=== PATIENT | female | born 1975 | race Caucasian/White ===

== ENCOUNTER 2016-04-10 08:53 | Day surgery (SDC) | payer OTHER ==
[2016-04-10 09:11] LABS: HEMATOCRIT 40.1 % (36.0-47.0); HEMOGLOBIN 13.7 g/dL (12.0-15.5); MEAN CORPUSCULAR HEMOGLOBIN 29.9 pg (27.0-33.4); MEAN CORPUSCULAR HGB CONC 34.2 g/dL (32.0-36.0); MEAN CORPUSCULAR VOLUME 87 fl (80-97); RED CELL DISTRIBUTION WIDTH 12.7 % (11.5-14.0); WHITE BLOOD COUNT 7.3 10^3/uL (4.0-10.5)
[2016-04-10] MEDS ORDERED: ONDANSETRON HCL INJ/PF 4 MG/2 ML SDV ONE (10:45)
[2016-04-10] MEDS ORDERED: NALOXONE HCL INJ/PF 0.4 MG/1 ML SDV ONE (10:45)
[2016-04-10] MEDS ORDERED: GLYCOPYRROLATE INJ 0.4 MG/2 ML VIAL ONE (10:46)
[2016-04-10] MEDS ORDERED: PROMETHAZINE HCL INJ 25 MG/1 ML VIAL ONE (10:46)
[2016-04-10] MEDS ORDERED: GLUCAGON,HUMAN RECOMB 1 MG INJ ONE (10:47)
[2016-04-10] MEDS ORDERED: FLUMAZENIL INJ 0.5 MG/5 ML VIAL IV ONE (10:47)
[2016-04-10] MEDS ORDERED: EPINEPHRINE INJ 1 MG/10 ML DISP.SYRIN ONE (10:47)
[2016-04-10] MEDS: MIDAZOLAM 2 MG/2 ML INJ ONE ×2 (10:57→11:01)
[2016-04-10] MEDS: FENTANYL CITRATE INJ/PF 100 MCG/2 ML AMPUL ONE ×2 (10:59→11:03)
--- NOTE | 2016-04-10 11:46 | Operative Report ---
Operative Report DATE OF SURGERY: 04/10/16 PREOPERATIVE DIAGNOSIS: Sigmoid colon mass POSTOPERATIVE DIAGNOSIS: Sigmoid colon mass, distal sigmoid colon polyp OPERATION: Colonoscopy with biopsy of sigmoid colon mass and snare polypectomy of sigmoid colon polyp. Em ink marking of the sigmoid colon mass. SURGEON: HELENE MOSELEY ANESTHESIA: Moderate Sedation TISSUE REMOVED OR ALTERED: Biopsy of sigmoid colon mass. Snare polypectomy of distal sigmoid colon polyp. COMPLICATIONS: None ESTIMATED BLOOD LOSS: minimal INTRAOPERATIVE FINDINGS: At the distal sigmoid colon a half centimeter sessile polyp. At the mid sigmoid colon 3 cm mass with friable mucosa. PROCEDURE: Informed consent was obtained. Patient was brought to the endoscopy suite and placed on the endoscopy suite table with her left side down. IV sedation with Versed and fentanyl was administered. Digital rectal exam revealed no palpable perianal masses. Endoscope was passed via the patient's anus it was fed to the cecum. The bowel prep was good visualization was good. The cecum right colon transverse colon and descending colon were all normal. At what appeared to be the mid sigmoid colon there was a 3 cm mass it the appeared to be pedunculated but the base of the mass was about 2 cm therefore too large to be removed endoscopically. The mass appeared friable. Biopsies were taken. I did not see evidence of Em ink marking therefore Em ink marking was done at the 3 sections of the colon wall adjacent to the mass. Couple of folds distal to this mass there was a half centimeter sessile polyp each was snare polypectomy and the specimen was retrieved. Remainder of the sigmoid colon and the rectum appeared normal. Patient tolerated procedure well with no apparent complications. Distal sigmoid colon polyp status post successful snare polypectomy. Patient with sigmoid colon mass the probably at the mid sigmoid colon status post biopsy today. I will follow-up with the patient to discuss biopsy results and the surgical plan. She would benefit from a laparoscopic the partial colon resection.
--- NOTE | 2016-04-10 11:49 | PDOC DISCHARGE SUMMARY ---
Discharge Summary (SDC) - Discharge Final Diagnosis: Sigmoid colon mass. Sigmoid colon polyp. Date of Surgery: 04/10/16 Discharge Date: 04/10/16 Condition: Good Treatment or Instructions: Colonoscopy with snare polypectomy of sigmoid colon polyp, biopsy and Em ink marking of sigmoid colon mass. May discharge patient home when met discharge criteria. Follow-up with me next week. Discharge Diet: As Tolerated Discharge Activity: Activity As Tolerated Report the Following to Your Physician Immediately: Increase in Pain - Normal to have some abdominal discomfort but cough or severe abdominal pain, Fever over 101 Degrees, Unusual Bleeding - Normal to see small amount of bleeding in the next few days.
[2016-04-10 12:32] VITALS: BP 125/77
== END 2016-04-10 12:35 | disposition home or self-care (01) ==
LOC: END 08:53
PROVIDERS: ATTEND Surgery
PROC: 0DBN8ZX Excision of Sigmoid Colon, Via Natural or Artificial Opening Endoscopic, Diagnostic (ICD-10-PCS; principal; 2016-04-10 10:15)
DX: C18.7 Malignant neoplasm of sigmoid colon (principal); D12.5 Benign neoplasm of sigmoid colon; R53.83 Other fatigue; Z97.5 Presence of (intrauterine) contraceptive device
CPT/HCPCS: 45385; 45381; 36415; 85027; 81025; 88342 ×2; 88305 ×2; J2250; J3010; 45380; J0171; J1610; J2310; J2405; J2550; J3490

== ENCOUNTER → 2016-04-16 | Outpatient (CLI) | payer OTHER ==
[2016-04-16 12:08] LABS: ABSOLUTE EOSINOPHILS # (AUTO) 0.1 10^3/uL (0.0-0.6); ABSOLUTE LYMPHOCYTES (AUTO) 2.1 10^3/uL (0.5-4.7); ABSOLUTE MONOCYTES (AUTO) 0.6 10^3/uL (0.1-1.4); ABSOLUTE NEUT (AUTO) 6.1 10^3/uL (1.7-8.2); BASOPHILS % (AUTO) 0.2 % (0-2); EOSINOPHILS % (AUTO) 0.8 % (0-6); HEMATOCRIT 41.1 % (36.0-47.0); HGB HCT DIFFERENCE 0.9; LYMPHOCYTES % (AUTO) 23.2 % (13-45); MEAN CORPUSCULAR HEMOGLOBIN 29.3 pg (27.0-33.4); MEAN CORPUSCULAR VOLUME 86 fl (80-97); MONOCYTES % (AUTO) 7.1 % (3-13); RED BLOOD COUNT 4.77 10^6/uL (3.72-5.28); RED CELL DISTRIBUTION WIDTH 12.8 % (11.5-14.0); SEGMENTED NEUTROPHILS % (AUTO) 68.7 % (42-78); WHITE BLOOD COUNT 8.9 10^3/uL (4.0-10.5)
[2016-04-16 12:48] LABS: ALANINE AMINOTRANSFERASE 30 U/L (9-52); ALBUMIN 4.1 g/dL (3.5-5.0); ALKALINE PHOSPHATASE 55 U/L (38-126); ANION GAP 12 (5-19); ASPARTATE AMINO TRANSFERASE 21 U/L (14-36); BILIRUBIN,TOTAL 0.5 mg/dL (0.2-1.3); BLOOD UREA NITROGEN 10 mg/dL (7-20); CALCIUM 9.7 mg/dL (8.4-10.2); CARBON DIOXIDE 24 mmol/L (22-30); CHLORIDE 106 mmol/L (98-107); CREATININE RESULT 0.84 mg/dL (0.52-1.25); GLUCOSE 79 mg/dL (75-110); POTASSIUM 4.6 mmol/L (3.6-5.0); SODIUM 142.1 mmol/L (137-145); TOTAL PROTEIN 7.9 g/dL (6.3-8.2)
[2016-04-16 13:10] LABS: CARCINOEMBRYONIC ANTIGEN 0.7 ng/mL (<3.0)
== END ==
LOC: OD 11:08
PROVIDERS: ATTEND Surgery
DX: C18.9 Malignant neoplasm of colon, unspecified (principal)
CPT/HCPCS: 36415; 80053; 82378; 84703; 85025

== ENCOUNTER → 2016-04-19 | Outpatient (CLI) | payer OTHER | LOC: RAD 09:48 | PROVIDERS: ATTEND Surgery | DX: C18.9 Malignant neoplasm of colon, unspecified (principal) | CPT/HCPCS: 71260; 74177 ==

== ENCOUNTER 2016-05-10 05:56 | Inpatient (IN) | payer OTHER ==
[~2016-05-10 05:56] MED LIST: ERTAPENEM SODIUM 1 GM in NORMAL SALINE 50 ML IV PRN; NORMAL SALINE 1000 ML 1,000 ML IV PRN; RINGERS SOLUTION,LACTATED 1,000 ML IV PRN
[2016-05-10] MEDS ORDERED: BUPIVACAINE HCL 0.25 % INJ/PF (2.5 MG/1 ML) 30 ML VIAL ONE (06:34)
[2016-05-10] MEDS ORDERED: FENTANYL CITRATE INJ/PF 250 MCG/5 ML AMPULE ONE (07:05)
[2016-05-10] MEDS ORDERED: MIDAZOLAM 2 MG/2 ML INJ ONE (07:06)
[2016-05-10] MEDS ORDERED: PROPOFOL INJ 200 MG/20 ML VIAL IV ONE ×2 (07:06→07:19)
[2016-05-10] MEDS ORDERED: EPHEDRINE SULFATE INJ 50 MG/1 ML AMPULE ONE (07:06)
[2016-05-10] MEDS ORDERED: ACETAMINOPHEN 100 ML IV ONE (07:06)
[2016-05-10] MEDS ORDERED: HYDROMORPHONE HCL INJ/PF 2 MG/ML AMPULE ONE (07:06)
[2016-05-10] MEDS ORDERED: DEXMEDETOMIDINE INJ 80 MCG/20 ML VIAL IV ONE (07:06)
[2016-05-10] MEDS ORDERED: PROMETHAZINE HCL INJ 25 MG/1 ML VIAL IV PRN ×2 (10:31)
[2016-05-10] MEDS ORDERED: DIPHENHYDRAMINE HCL 50 MG/ML VIAL IV PRN (10:31)
[2016-05-10] MEDS ORDERED: MEPERIDINE HCL/PF INJ 25 MG/1 ML DISP.SYRIN IV PRN (10:31)
[2016-05-10] MEDS ORDERED: MORPHINE SULFATE 10 MG/ML INJ IV PRN (10:31)
[2016-05-10] MEDS ORDERED: FENTANYL CITRATE INJ/PF 100 MCG/2 ML AMPUL IV PRN ×3 (10:31)
[2016-05-10] MEDS ORDERED: ONDANSETRON HCL INJ/PF 4 MG/2 ML SDV IV PRN ×2 (10:31→12:17)
--- NOTE | 2016-05-10 12:35 | Operative Report ---
Operative Report DATE OF SURGERY: 05/10/16 PREOPERATIVE DIAGNOSIS: Sigmoid colon cancer POSTOPERATIVE DIAGNOSIS: Sigmoid colon cancer, descending colon polyp. OPERATION: Laparoscopic sigmoid colon resection with mobilization of the splenic flexure with colorectal anastomosis. Polypectomy of descending colon polyp. SURGEON: HELENE MOSELEY ANESTHESIA: GA TISSUE REMOVED OR ALTERED: Sigmoid colon. Descending colon polyp. COMPLICATIONS: None ESTIMATED BLOOD LOSS: 50 mL INTRAOPERATIVE FINDINGS: At the mid sigmoid colon pedunculated a large mass consistent with preoperative endoscopic finding of colon cancer. Half centimeter sessile polyp at the distal descending colon. PROCEDURE: Informed consent was obtained. Patient was brought to the operating room and placed on the operating room table in the supine position. After satisfactory induction of general anesthesia, patient was placed in a low lithotomy position and the patient's abdomen and perineum were prepped and draped in usual sterile fashion. A infraumbilical midline incision was made. Dissection was carried out through the fascia the peritoneal cavity entered without difficulty. Laparoscopic hand port was then inserted pneumoperitoneum produced with good patient toleration. A 12 mm trocar was placed in the low right abdomen. Total of three 5 mm trochars were used one at the right mid lateral abdomen and another one at the lower mid abdomen and another one at the left abdomen. Laparoscopic view demonstrated a smooth peritoneal surface with smooth appearing liver with no masses. The small bowel appear grossly normal. The right colon transverse colon descending colon appear grossly normal. Sigmoid colon had at the mid sigmoid colon level Em ink marking. Both of the ovaries appeared normal. Patient was placed in a Trendelenburg position with her left side up. A medial to lateral dissection was begun at the sacral promontory. The left ureter was identified and protected during the dissection. The inferior mesenteric artery was clearly defined a was dissected to near its origin. It was taken using a vascular load of the DELON stapling device. The left colon was completely mobilized. Distal dissection was performed to the level of the upper rectum. A plane was created between the mesial rectum and the upper rectum and the upper rectum was divided using a DELON stapling device. The mesentery of the upper rectum was taken using a vascular load of the DELON stapling device. The upper rectum and the sigmoid colon was delivered out of the patient's abdomen via the hand port site. The sigmoid colon was divided at its junction to the descending colon using a DELON stapling device. The mesentery of the entire sigmoid colon was taken by clamping dividing and tying. The descending colon and appear well vascularized with the triphasic Doppler signals at its mesentery. The colon and did not quite reach the rectal stump therefore a full splenic flexure mobilization was performed. Dissection was begun at the descending colon and progress toward the spleen. The omentum was taken off of the distal transverse colon and the dissection was carried the left toward the spleen as well. The splenic flexure was completely mobilized. The splenic flexure had the fatty omental adhesions that made this portion of the procedure difficult. Great care was taken to avoid injury to the spleen and the splenic flexure of the colon. After complete mobilization of the splenic flexure the distal descending colon and reach down to the rectal stump easily. A pursestring device was applied to the end of the descending colon. Looking into the lumen of the descending colon there was a half centimeter sessile polyp that was noted about 3 cm up. This polyp was removed using electrocautery and submitted to pathology. Head of a 33 EEA stapling device was then attached to the descending colon and using a pursestring device. The EEA stapling device was was introduced via the patient's rectum into the rectal stump and a end to end anastomosis was created between the descending colon end and the rectal stump. The anastomosis came together without any tension. Both of the doughnuts were intact. Anastomosis was tested with the proctoscope insufflating air. The anastomosis was airtight. Hemostasis appeared excellent. Sponge needle instrument counts were all correct. All trochars were removed under the direct vision of the laparoscope to ensure hemostasis. The 12 mm of trocar site fascial defect was closed with interrupted Vicryl suture. The hand port fascial defect was closed with running PDS suture. Skin was closed with marin. Marcaine was injected at the operative site. Patient tolerated procedure well with no apparent complications and was taken to the recovery area in stable condition.
[2016-05-10] MEDS ORDERED: FENTANYL CITRATE INJ/PF 100 MCG/2 ML AMPUL ONE (12:47)
[2016-05-10] MEDS ORDERED: METOCLOPRAMIDE HCL INJ/PF 10 MG/2 ML SDV ONE (14:15)
[2016-05-10] MEDS ORDERED: LIDOCAINE 2% INJ-PF (20 MG/ML) 10 ML AMPUL ONE (14:15)
[2016-05-10] MEDS ORDERED: SUCCINYLCHOLINE CHLORIDE INJ 200 MG/10 ML VIAL ONE (14:15)
[2016-05-10] MEDS ORDERED: NEOSTIGMINE METHYLSULFATE 10 MG/10 ML VIAL ONE (14:15)
[2016-05-10] MEDS ORDERED: GLYCOPYRROLATE INJ 0.4 MG/2 ML VIAL ONE (14:15)
[2016-05-10] MEDS ORDERED: ONDANSETRON HCL INJ/PF 4 MG/2 ML SDV ONE (14:15)
[2016-05-10] MEDS ORDERED: DEXAMETHASONE SOD PHOSPHATE INJ 4 MG/1 ML VIAL ONE (14:15)
[2016-05-10] MEDS ORDERED: KETOROLAC TROMETHAMINE 60 MG/2 ML SDV ONE (14:15)
[2016-05-10] MEDS ORDERED: ROCURONIUM BROMIDE INJ 50 MG/5 ML VIAL IV ONE (14:15)
[2016-05-10] MEDS: KETOROLAC TROMETHAMINE INJ/PF 30 MG/1 ML SDV IV PRN ×2 (14:19→21:40)
[2016-05-10] MEDS: MORPHINE SULFATE 10 MG/ML INJ IV PRN ×3 (15:58→22:04)
--- NOTE | 2016-05-10 19:17 | PDOC PROGRESS REPORT ---
Subjective Progress Note for:: 05/10/16 Subjective:: lower abdominal pain. Physical Exam Vital Signs: Temp Pulse Resp BP Pulse Ox 97.5 F 56 L 16 104/47 L 97 05/10/16 14:22 05/10/16 14:22 05/10/16 14:22 05/10/16 14:22 05/10/16 14:22 Intake & Output 05/09/16 05/10/16 05/11/16 06:59 06:59 06:59 Intake Total 3750 Output Total 720 Balance 3030 Weight 98.43 kg 98.43 kg General appearance: PRESENT: no acute distress, cooperative Respiratory exam: PRESENT: clear to auscultation frank Cardiovascular exam: PRESENT: RRR GI/Abdominal exam: PRESENT: other - soft, nd, appropriate mild lower abdominal tenderness. Extremities exam: PRESENT: other - No swelling. Assessment & Plan - Diagnosis (1) Colon cancer Qualifiers: Colon location: sigmoid Qualified Code(s): C18.7 - Malignant neoplasm of sigmoid colon Is this a current diagnosis for this admission?: YesPlan: Status post laparoscopic sigmoid colon resection. Patient looks good. We'll adjust pain medications as needed. Will pull her Dennison catheter tomorrow and perhaps try liquids tomorrow.
[2016-05-10] MEDS: NORMAL SALINE 1000 ML 1,000 ML IV PRN (21:40)
[2016-05-10] MEDS: FAMOTIDINE INJ/PF 20 MG/2 ML SDV IV SCH (21:40)
[2016-05-11] MEDS: MORPHINE SULFATE 10 MG/ML INJ IV PRN ×7 (01:31→22:34)
[2016-05-11] MEDS: NORMAL SALINE 1000 ML 1,000 ML IV PRN (05:15)
[2016-05-11] MEDS: KETOROLAC TROMETHAMINE INJ/PF 30 MG/1 ML SDV IV PRN ×2 (07:11→15:27)
--- NOTE | 2016-05-11 07:54 | PDOC PROGRESS REPORT ---
Subjective Progress Note for:: 05/11/16 Subjective:: Pain improved. Feels okay. Not passing gas. No nausea. Physical Exam Vital Signs: Temp Pulse Resp BP Pulse Ox 98.4 F 73 17 119/67 98 05/10/16 23:39 05/10/16 23:39 05/10/16 23:39 05/10/16 23:39 05/10/16 23:39 Intake & Output 05/10/16 05/11/16 05/12/16 06:59 06:59 06:59 Intake Total 5250 Output Total 1020 Balance 4230 Weight 98.43 kg 97.2 kg General appearance: PRESENT: no acute distress, cooperative Respiratory exam: PRESENT: clear to auscultation frank Cardiovascular exam: PRESENT: RRR GI/Abdominal exam: PRESENT: soft - Soft, nondistended, appropriate tenderness near the incisions. Decreased bowel sounds. Extremities exam: PRESENT: other - No swelling. No tenderness. Assessment & Plan - Diagnosis (1) Colon cancer Qualifiers: Colon location: sigmoid Qualified Code(s): C18.7 - Malignant neoplasm of sigmoid colon Is this a current diagnosis for this admission?: YesPlan: Status post the laparoscopic low anterior resection. Patient looks well. Will hold off diet for right now. will DC Dennison catheter. Encourage ambulation.
[2016-05-11 08:21] LABS: HEMATOCRIT 33.8 % (36.0-47.0); HEMOGLOBIN 11.4 g/dL (12.0-15.5); HGB HCT DIFFERENCE 0.4; MEAN CORPUSCULAR HEMOGLOBIN 29.7 pg (27.0-33.4); MEAN CORPUSCULAR HGB CONC 33.8 g/dL (32.0-36.0); MEAN CORPUSCULAR VOLUME 88 fl (80-97); RED BLOOD COUNT 3.84 10^6/uL (3.72-5.28); RED CELL DISTRIBUTION WIDTH 12.9 % (11.5-14.0); WHITE BLOOD COUNT 11.5 10^3/uL (4.0-10.5)
[2016-05-11 09:02] LABS: ANION GAP 8 (5-19); BLOOD UREA NITROGEN 8 mg/dL (7-20); CALCIUM 8.6 mg/dL (8.4-10.2); CARBON DIOXIDE 20 mmol/L (22-30); CHLORIDE 109 mmol/L (98-107); CREATININE RESULT 0.69 mg/dL (0.52-1.25); GLUCOSE 76 mg/dL (75-110); POTASSIUM 4.2 mmol/L (3.6-5.0)
[2016-05-11] MEDS: FAMOTIDINE INJ/PF 20 MG/2 ML SDV IV SCH ×2 (09:12→22:34)
[2016-05-11] MEDS ORDERED: NORMAL SALINE 1000 ML 1,000 ML IV PRN (17:14)
[2016-05-12] MEDS: KETOROLAC TROMETHAMINE INJ/PF 30 MG/1 ML SDV IV PRN ×3 (02:17→22:56)
[2016-05-12] MEDS: MORPHINE SULFATE 10 MG/ML INJ IV PRN ×6 (02:17→22:57)
--- NOTE | 2016-05-12 08:11 | PDOC PROGRESS REPORT ---
Subjective Progress Note for:: 05/12/16 - \ Subjective:: Feels well. Tolerating liquids. Not passing gas. No nausea. Physical Exam Vital Signs: Temp Pulse Resp BP Pulse Ox 98.6 F 84 20 127/62 H 96 05/11/16 23:38 05/11/16 23:38 05/11/16 23:38 05/11/16 23:38 05/11/16 23:38 Intake & Output 05/11/16 05/12/16 05/13/16 06:59 06:59 06:59 Intake Total 5250 2945 Output Total 1020 1600 Balance 4230 1345 Weight 97.2 kg 104.8 kg General appearance: PRESENT: no acute distress, cooperative Respiratory exam: PRESENT: clear to auscultation frank Cardiovascular exam: PRESENT: RRR GI/Abdominal exam: PRESENT: other - Soft, nondistended, minimal tenderness. Active bowel sounds. Extremities exam: PRESENT: other - No swelling and no tenderness. Results Laboratory Results: 05/11/16 06:50 05/11/16 06:50 05/11/16 05/11/16 06:50 06:50 WBC 11.5 H RBC 3.84 Hgb 11.4 L Hct 33.8 L MCV 88 MCH 29.7 MCHC 33.8 RDW 12.9 Plt Count 190 Sodium 137.0 Potassium 4.2 Chloride 109 H Carbon Dioxide 20 L Anion Gap 8 BUN 8 Creatinine 0.69 Est GFR ( Amer) > 60 Est GFR (Non-Af Amer) > 60 Glucose 76 Calcium 8.6 Assessment & Plan - Diagnosis (1) Colon cancer Qualifiers: Colon location: sigmoid Qualified Code(s): C18.7 - Malignant neoplasm of sigmoid colon Is this a current diagnosis for this admission?: YesPlan: Status post the laparoscopic low anterior resection. Patient looks well. Tolerating clears well. Will Hep-Lock IV. Will advance diet when she has better bowel function. Possible discharge to home tomorrow.
[2016-05-12] MEDS: FAMOTIDINE INJ/PF 20 MG/2 ML SDV IV SCH ×2 (10:02→22:56)
[2016-05-13] MEDS: MORPHINE SULFATE 10 MG/ML INJ IV PRN ×2 (05:57→09:10)
[2016-05-13] MEDS: KETOROLAC TROMETHAMINE INJ/PF 30 MG/1 ML SDV IV PRN ×2 (09:10→18:09)
[2016-05-13] MEDS: FAMOTIDINE INJ/PF 20 MG/2 ML SDV IV SCH ×2 (09:10→21:45)
[2016-05-13] MEDS ORDERED: OXYCODONE-ACETAMINOPHEN 5-325 MG TABLET PO PRN ×3 (12:00→14:51)
--- NOTE | 2016-05-13 12:33 | PROGRESS NOTE E ---
Progress Note NAME: MARYBETH WEEKS : 1975 AGE: 40Y DATE: 05/13/2016 ROOM: 409 SUBJECTIVE: The patient is postoperative day 3 status post hand-assisted laparoscopic sigmoid colon resection. She is doing excellently. She is up and ambulating. OBJECTIVE: VITAL SIGNS: Her vital signs are stable. GENERAL: Her physical examination reveals an appropriate, alert woman in no acute distress. She is ambulatory. LUNGS: Her chest is clear to auscultation and percussion. CARDIAC: Exam is without murmur, gallop, or rub. ABDOMEN: Soft. Nontender. There is no organomegaly, mass, rebound, guarding, or rigidity. There is no evidence of peritonitis. Wounds are healing nicely. She has ample bowel sounds. EXTREMITIES: Peripheral examination is unremarkable. RECOMMENDATION: She has not, as yet, had a bowel movement and is not passing flatus. Recommendations at this time is to continue clear liquids, which she is tolerating well and await normal return of her bowel function. She is in agreement with this recommendation. DICTATING PHYSICIAN: SRAAH MENSAH M.D. [id number] PHY#: [id number] ID: [id number] JOB#: [id number] ACCT: [id number] cc: >
[2016-05-13] MEDS ORDERED: MAG HYDROX/AL HYDROX/SIMETH SUSP 30 ML UDCUP PO PRN (14:52)
[2016-05-13] MEDS: OXYCODONE-ACETAMINOPHEN 5-325 MG TABLET PO PRN (21:53)
[2016-05-14] MEDS: KETOROLAC TROMETHAMINE INJ/PF 30 MG/1 ML SDV IV PRN ×2 (07:11→13:53)
--- NOTE | 2016-05-14 09:02 | PDOC PROGRESS REPORT ---
Subjective Progress Note for:: 05/14/16 Subjective:: feels well. Physical Exam Vital Signs: Temp Pulse Resp BP Pulse Ox 98.2 F 62 18 125/84 100 05/14/16 07:32 05/14/16 07:32 05/14/16 07:32 05/14/16 07:32 05/14/16 07:32 Intake & Output 05/13/16 05/14/16 05/15/16 06:59 06:59 06:59 Intake Total 2280 1670 Output Total 13350 2850 Balance -30442 -1180 Weight 103.4 kg 102 kg General appearance: PRESENT: no acute distress, cooperative Respiratory exam: PRESENT: clear to auscultation frank Cardiovascular exam: PRESENT: RRR GI/Abdominal exam: PRESENT: other - soft, nd, ntp, c/d/i Extremities exam: PRESENT: other - no swelling, no edema Results Laboratory Results: 05/11/16 06:50 05/11/16 06:50 Assessment & Plan - Diagnosis (1) Colon cancer Qualifiers: Colon location: sigmoid Qualified Code(s): C18.7 - Malignant neoplasm of sigmoid colon Is this a current diagnosis for this admission?: YesPlan: doing well. passing gas now. advance diet, possible d/c later today.
[2016-05-14] MEDS: FAMOTIDINE INJ/PF 20 MG/2 ML SDV IV SCH (09:33)
[2016-05-14] MEDS: OXYCODONE-ACETAMINOPHEN 5-325 MG TABLET PO PRN (09:34)
[2016-05-14 18:01] VITALS: BP 130/75
--- NOTE | 2016-05-14 18:18 | DISCHARGE SUMMARY E ---
Discharge Summary NAME: MARYBETH WEEKS : 1975 AGE: 40Y ADMITTED: 05/10/2016 DISCHARGED: 05/14/2016 DISCHARGE DIAGNOSIS: Invasive sigmoid colon cancer. PROCEDURE PERFORMED DURING HOSPITALIZATION: Laparoscopic low anterior resection with mobilization of the splenic flexure performed by Dr. Jeremiah Moseley on 05/10/2016. HOSPITAL COURSE: The patient underwent the abovementioned surgery. She had gradual resumption of bowel function. She was tolerating a solid diet without difficulty at the time of discharge. Her exam looked good, and her vital signs looked good. The patient has now been discharged to home in good condition. She will follow up with me later this week for suture removal. Of note, her pathology report demonstrated high-grade invasive adenocarcinoma with tumor extension into the submucosa but not into the muscularis. 2 out of 17 lymph nodes were positive for cancer. Pathologic staging was a T1N1 cancer. The patient was also noted with a tubular adenoma which was resected. The patient encouraged to stay active at home but avoid strenuous activity. She may shower. DISCHARGE MEDICATIONS: Percocet 1 p.o. q.4 hours p.r.n. pain. DICTATING PHYSICIAN: JEREMIAH MOSELEY M.D. [id number] PHY#: [id number] ID: [id number] JOB#: [id number] ACCT: [id number] cc:JEREMIAH MOSELEY M.D. >
== END 2016-05-14 18:15 | disposition home or self-care (01) | DRG 330 ==
LOC: UNDOADMIN 05:56 → INOR 05:56 → 4N 13:47
PROVIDERS: ADMIT Surgery; ATTEND Surgery
PROC: 0DTN4ZZ Resection of Sigmoid Colon, Percutaneous Endoscopic Approach (ICD-10-PCS; principal; 2016-05-10 08:00)
DX: C18.7 Malignant neoplasm of sigmoid colon (principal); C77.2 Secondary and unspecified malignant neoplasm of intra-abdominal lymph nodes; D12.4 Benign neoplasm of descending colon
CPT/HCPCS: 36415; 80048; 81025; 840; 85027; 88305; 88307; 94799; 88329; J0131; J0330; J1100; J1170; J1335; J1885; J2250; J2270; J2405; J2704; J2765; J3010; J3490; J7030; S0028

== ENCOUNTER 2016-06-11 06:26 | Day surgery (SDC) | payer OTHER ==
[~2016-06-11 06:26] MED LIST changes: +CEFAZOLIN 1 GM/D5W RTU 1 GM/50 ML RTUPB IV PRN; +DEXTROSE 5%-LACTATED RINGERS 1,000 ML IV PRN; -ERTAPENEM SODIUM 1 GM in NORMAL SALINE 50 ML IV PRN; -NORMAL SALINE 1000 ML 1,000 ML IV PRN; -RINGERS SOLUTION,LACTATED 1,000 ML IV PRN
[2016-06-11 07:34] LABS: HEMATOCRIT 37.3 % (36.0-47.0); HEMOGLOBIN 12.7 g/dL (12.0-15.5); HGB HCT DIFFERENCE 0.8; MEAN CORPUSCULAR HEMOGLOBIN 29.4 pg (27.0-33.4); MEAN CORPUSCULAR HGB CONC 34.2 g/dL (32.0-36.0); MEAN CORPUSCULAR VOLUME 86 fl (80-97); RED BLOOD COUNT 4.34 10^6/uL (3.72-5.28); WHITE BLOOD COUNT 7.7 10^3/uL (4.0-10.5)
[2016-06-11] MEDS ORDERED: BACITRACIN INJ 50,000 UNIT VIAL IR PRN (07:49)
[2016-06-11] MEDS ORDERED: LIDOCAINE 0.5% INJ-PF (5 MG/ML) 50 ML SDV ONE (08:03)
[2016-06-11] MEDS ORDERED: FENTANYL CITRATE INJ/PF 100 MCG/2 ML AMPUL ONE (08:16)
[2016-06-11] MEDS ORDERED: MIDAZOLAM 2 MG/2 ML INJ ONE ×2 (08:16→09:22)
[2016-06-11] MEDS ORDERED: CEFAZOLIN INJ 1 GM VIAL ONE (08:16)
[2016-06-11 11:01] VITALS: BP 122/77
--- NOTE | 2016-06-11 12:00 | Operative Report ---
Operative Report DATE OF SURGERY: 06/11/16 PREOPERATIVE DIAGNOSIS: Metastatic colon carcinoma POSTOPERATIVE DIAGNOSIS: Same OPERATION: 1. Focused ultrasound of the right internal jugular vein. 2. Right internal jugular vein single-lumen [id number]-Dfhr catheter insertion. 3. Interpretation of intraoperative fluoroscopy. 4. Venogram of the SVC SURGEON: FAY BAUTISTA ANESTHESIA: Local TISSUE REMOVED OR ALTERED: None COMPLICATIONS: None ESTIMATED BLOOD LOSS: scant INTRAOPERATIVE FINDINGS: See below PROCEDURE: Patient was in the preop holding area then taken to the cardiac catheterization lab where she was placed in supine position arms tucked. The right neck and right chest wall were prepped and draped in sterile fashion Surgical plan and surgical timeout conducted. Appropriate level sedation was induced. Using ultrasound as a guide, the right internal jugular vein was identified and felt suitable for cannulation. Skin was anesthetized 1% lidocaine plain, a microneedle and a wire threaded into the right internal jugular vein uneventfully and fluoroscopically found to have the wire in the SVC. A suitable site for placement of the port was chosen in the right subclavian position. The skin was anesthetized 1% lidocaine and a 3 cm incision made with a knife. A pocket was developed in the subcutaneous space large enough to accommodate the port. The port was then attached to the catheter the catheter threaded between the subclavian position and the right neck incision. It was trimmed appropriately. The port was tucked into the pocket. The micro-wire was transferred over to a 0.035 wire using the micro-introducer sheath. As all performed uneventfully under fluoroscopic guidance. The track was now dilated up with the dilator introducer sheath, then the catheter was threaded into the right internal jugular vein uneventfully after removing the dilator and wire. Triple issues was removed leaving the catheter in good position with the tip in the superior vena cava. 5 mL of full strength is used to visualize the venous anatomy and this confirmed evidence of stratus fixation, and rapid reflux into the superior vena cava-right atrial junction. There was no kinking of the catheter. There was excellent aspiration and flushed through the single-chamber. Wounds closed with 3-0 Vicryl benzoin and Steri-Strips. Patient tolerated the procedure Well, taken to recovery in stable condition.
--- NOTE | 2016-06-14 07:48 | DISCHARGE SUMMARY E ---
Discharge Summary NAME: MARYBETH WEEKS : 1975 AGE: 40Y ADMITTED: 06/11/2016 DISCHARGED: 06/11/2016 SUMMARY OF HOSPITALIZATION: Patient is a 41-year-old white female with a history of stage 3 colon carcinoma status post left colectomy who was brought to the hospital for Yakp-k-uolahijs placement. The procedure is performed by Dr. Flynn on the right side. She tolerated the procedure well. There are no post postprocedure complications. FINAL DIAGNOSIS: Metastatic colon carcinoma, status post right subclavian [id number]-p-Uavu catheter placement by Dr. Flynn. DISPOSITION: Patient was discharged home to care of family. Patient will followup with Dr. Constantino as previously scheduled at [facility] in approximately 2 weeks and the medical oncology group in approximately 1 week. DICTATING PHYSICIAN: FAY FLYNN M.D. [id number] PHY#: [id number] ID: [id number] JOB#: [id number] ACCT: [id number] cc:FAY FLYNN M.D. >
== END 2016-06-11 11:00 | disposition home or self-care (01) ==
LOC: CCL 06:26
PROVIDERS: ATTEND Surgery
PROC: 05H533Z Insertion of Infusion Device into Right Subclavian Vein, Percutaneous Approach (ICD-10-PCS; principal; 2016-06-11)
DX: C78.5 Secondary malignant neoplasm of large intestine and rectum (principal); Z90.49 Acquired absence of other specified parts of digestive tract
CPT/HCPCS: 36415; 85027; 36561; 76937; 77001; C1788; C1752; Q9967; J2250; J3490 ×2; J0690; J3010; J1644

== ENCOUNTER → 2016-07-09 | Outpatient (CLI) | payer OTHER | LOC: WI 14:40 | PROVIDERS: ATTEND Specialist | DX: Z12.31 Encounter for screening mammogram for malignant neoplasm of breast (principal) | CPT/HCPCS: 77067; G0202 ==

== ENCOUNTER → 2016-10-24 | Outpatient (CLI) | payer OTHER | LOC: OD 09:44 | PROVIDERS: ATTEND Surgery | DX: C18.9 Malignant neoplasm of colon, unspecified (principal) | CPT/HCPCS: 36415; 82378 ==

== ENCOUNTER 2017-06-06 06:44 | Day surgery (SDC) | payer OTHER ==
[2017-06-06] MEDS ORDERED: NALOXONE HCL INJ/PF 0.4 MG/1 ML SDV ONE (07:17)
[2017-06-06] MEDS ORDERED: ONDANSETRON HCL INJ/PF 4 MG/2 ML SDV ONE (07:17)
[2017-06-06] MEDS ORDERED: GLUCAGON,HUMAN RECOMB 1 MG INJ ONE (07:18)
[2017-06-06] MEDS ORDERED: FLUMAZENIL INJ 0.5 MG/5 ML VIAL ONE (07:18)
[2017-06-06] MEDS ORDERED: EPINEPHRINE INJ 1 MG/10 ML DISP.SYRIN ONE (07:18)
[2017-06-06] MEDS: MIDAZOLAM 2 MG/2 ML INJ ONE ×3 (07:29→07:40)
[2017-06-06] MEDS: FENTANYL CITRATE INJ/PF 100 MCG/2 ML AMPUL ONE ×2 (07:30→07:34)
--- NOTE | 2017-06-06 08:01 | Discharge Summary ---
Discharge Summary (SDC) - Discharge Final Diagnosis: Normal colonoscopy; nonthrombosed external hemorrhoid; status post low anterior resection Date of Surgery: 06/06/17 Discharge Date: 06/06/17 Condition: Good Treatment or Instructions: [address] [id number] POST ENDOSCOPY DISCHARGE INSTRUCTIONS 1. Diet: Start clear liquids that a regular diet as tolerated. 2. Resume all preoperative medications. All oral anticoagulants and aspirins can be resumed 24 hours after procedure. 3. If a polypectomy was performed some bleeding per rectum may occur. This should stop within 3 days. If not, please contact the office. 4. If you had a colonoscopy you may experience some bloating and delayed return of normal bowel function for several days, your regular bowel movement pattern should resume within a week. 5. Please contact [facility] at to make an appointment with Dr. Flynn for 1 to 3 weeks following procedure. 6. If you have any questions or concerns regarding your care,treatment plan or follow up, please contact our office. 7. Per clinical guidelines we recommend you undergo a repeat colonoscopy in 2 years. Referrals: MORRIS BOYD NP [Primary Care Provider] - Discharge Diet: As Tolerated Discharge Activity: Activity As Tolerated Home Care Assistance: None Needed Report the Following to Your Physician Immediately: Shortness of Breath, Increase in Pain, Fever over 101 Degrees
--- NOTE | 2017-06-06 08:05 | Operative Report ---
Operative Report DATE OF SURGERY: 06/06/17 PREOPERATIVE DIAGNOSIS: 1. History of colon cancer, stage III, status post low anterior resection POSTOPERATIVE DIAGNOSIS: 1. Intact colorectal anastomosis with no evidence of recurrent cancer. 2. Thrombosed external hemorrhoid. 3. Otherwise normal colonoscopy OPERATION: Total colonoscopy to cecum with photodocumentation SURGEON: FAY BAUTISTA ANESTHESIA: Moderate Sedation TISSUE REMOVED OR ALTERED: None COMPLICATIONS: None ESTIMATED BLOOD LOSS: None INTRAOPERATIVE FINDINGS: See below PROCEDURE: Obtaining informed consent the patient was taken from the preoperative holding area to the main endoscopy suite where monitoring devices were attached to the patient. Plan and surgical timeout were conducted The patient was placed in the left lateral decubitus position with knees to chest. A perianal examination was performed. There was no visible or palpable anorectal pathology. Sphincter tone was felt to be normal. There was an external right posterior lateral thrombosed hemorrhoid. The flexible adult colonoscope was advanced through the anal rectal canal, all the way to the cecum. Visualization of the cecum was achieved and the ileocecal valve, the appendiceal orifice and transillumination of the anterior abdominal wall confirmed cecal intubation. This was an excellent study on the well-prepped bowel. The colonoscope was withdrawn slowly and methodically checked and the mucosa carefully. There was no evidence of tumor, stricture, bleeding or polyp. There was no evidence of diverticuloses. Colorectal anastomosis was approximately 10 cm from the anal verge. It was widely patent, with no evidence of recurrent tumor. A residual operative staple was visualized. The scope was slowly withdrawn through the anal rectal canal. Complete visualization of the rectum was achieved with photodocumentation. The scope was withdrawn to the patient's anus. The patient tolerated the procedure well and was taken to the recovery area in stable condition. Patient will be an appropriate candidate for surveillance colonoscopy in approximately 2 years.
[2017-06-06 08:47] VITALS: BP 122/75
== END 2017-06-06 08:50 | disposition home or self-care (01) ==
LOC: END 06:44
PROVIDERS: ATTEND Surgery
PROC: 0DJD8ZZ Inspection of Lower Intestinal Tract, Via Natural or Artificial Opening Endoscopic (ICD-10-PCS; principal; 2017-06-06 07:30)
DX: Z85.038 Personal history of other malignant neoplasm of large intestine (principal); K64.4 Residual hemorrhoidal skin tags; Z86.010 Personal history of colon polyps; Z90.49 Acquired absence of other specified parts of digestive tract; Z88.8 Allergy status to other drugs, medicaments and biological substances
CPT/HCPCS: 45378; J2250; J3010; J0171; J1610; J2310; J2405; J3490

== ENCOUNTER → 2017-07-15 | Outpatient (CLI) | payer OTHER ==
--- NOTE | 2017-07-15 14:41 | WOMENS IMAGING REPORT ---
EXAM DESCRIPTION: BILAT SCREENING MAMMO W/CAD COMPLETED DATE/TIME: 07/15/2017 7:11 am REASON FOR STUDY: SCREENING MAMMO Z12.31 ENCNTR SCREEN MAMMOGRAM FOR MALIGNANT NEOPLASM OF GREGORY COMPARISON: 2016 TECHNIQUE: Standard craniocaudal and mediolateral oblique views of each breast recorded using digita l acquisition. LIMITATIONS: None. FINDINGS: No masses, calcifications or architectural distortion. No areas of suspicion. Read with the assistance of CAD. .[facility] - R2 Cenova Version 1.3 .[facility] Imaging - R2 Cenova Version 1.3 .[facility] - R2 Cenova Version 2.4 .[facility] [place] R2 Cenova Version 2.4 .[facility] - R2 [employer] Version 9.2 IMPRESSION: NORMAL MAMMOGRAM. BIRADS 1. BREAST DENSITY: b. There are scattered areas of fibroglandular density. BIRAD: 1 NEGATIVE RECOMMENDATION: ROUTINE SCREENING COMMENT: The patient has been notified of the results by letter per SA requirements. Additional no tification policies are in place for contacting patient with suspicious or incomplete findings. Quality ID #225: The [employer] recommends an annual screening mammogram for women aged 40 years or over. This facility utilizes a reminder system to ensure that all patients receive reminder letters, and/or direct phone calls for appointments. This includes reminders for routine scr eening mammograms, diagnostic mammograms, or other Breast Imaging Interventions when appropriate. Th is patient will be placed in the appropriate reminder system. The [employer] (ACR) has developed recommendations for screening MRI of the breast s in certain patient populations, to be used in conjunction with mammography. Breast MRI surveillanc e may be appropriate for women with more than 20% lifetime risk of developing breast cancer as deter mined by genetic testing, significant family history of the disease, or history of mantle radiation f or Hodgkins Disease. ACR Practice Guidelines 2008. TECHNICAL DOCUMENTATION: FINDING NUMBER: (1) ASSESSMENT: (1) JOB ID: [id number] [email or web address]- All Rights Reserved Reading location - IP/workstation name: [facility]-[email or web address]
== END ==
LOC: WI 06:56
PROVIDERS: ATTEND Internal Medicine Hematology & Oncology
DX: Z12.31 Encounter for screening mammogram for malignant neoplasm of breast (principal)
CPT/HCPCS: 77067

== ENCOUNTER → 2018-02-27 | Outpatient (CLI) | payer OTHER ==
--- NOTE | 2018-02-27 10:30 | RADIOLOGY REPORT (SQ) ---
EXAM DESCRIPTION: CT CHEST WITH COMPLETED DATE/TIME: 02/27/2018 9:13 am REASON FOR STUDY: RECTAL CA (C20) C20 MALIGNANT NEOPLASM OF RECTUM COMPARISON: 01/03/2017 and 04/19/2016. TECHNIQUE: CT scan of the chest performed using helical scanning technique with dynamic intravenous contrast injection. Images reviewed with lung, soft tissue and bone windows. Reconstructed coronal and sagittal MPR and MIP images reviewed. All images stored on PACS. All CT scanners at this facility use dose modulation, iterative reconstruction, and/or weight based d osing when appropriate to reduce radiation dose to as low as reasonably achievable (ALARA). [facility]: Dose Right [facility]: CareDose [facility]: Dose Right [facility]: Teradose 4D [facility]: Quanergy Systems CONTRAST TYPE AND DOSE: 100 mL Omnipaque 350- low osmolar. RENAL FUNCTION: None required. The patient is less than 50 years old. RADIATION DOSE: . LIMITATIONS: None. FINDINGS: LUNGS AND PLEURA: No opacities, nodules, masses. No pneumothorax. No effusions. HILAR AND MEDIASTINAL STRUCTURES: No identified masses or abnormal nodes. HEART AND VASCULAR STRUCTURES: No aneurysm or dissection. No central pulmonary emboli. No pericardi al effusion. HARDWARE: Vascular port. UPPER ABDOMEN: No significant findings. Limited exam. THYROID AND OTHER SOFT TISSUES: No masses. No adenopathy. BONES: No significant finding. OTHER: No other significant finding. IMPRESSION: NORMAL CT OF THE CHEST WITH IV CONTRAST. NO EVIDENCE OF METASTATIC INVOLVEMENT IN THE C HEST. TECHNICAL DOCUMENTATION: JOB ID: [id number] Quality ID # [id number]: Final reports with documentation of one or more dose reduction techniques (e.g., Au tomated exposure control, adjustment of the mA and/or kV according to patient size, use of iterative reconstruction technique) 2010 [employer]- All Rights Reserved Reading location - IP/workstation name: [email or web address]
--- NOTE | 2018-02-27 10:37 | RADIOLOGY REPORT (SQ) ---
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 TECHNIQUE: CT scan of the abdomen and pelvis performed using helical scanning technique with dynamic intravenous contrast injection. No oral contrast. Images reviewed with lung, soft tissue, and bone windows. Reconstructed coronal and sagittal MPR images reviewed. Delayed images for evaluation of the urinary system also acquired. All images stored on PACS. All CT scanners at this facility use dose modulation, iterative reconstruction, and/or weight based d osing when appropriate to reduce radiation dose to as low as reasonably achievable (ALARA). [facility]: Dose Right [facility]: CareDose [facility]: Dose Right [facility]: Teradose 4D [facility]: TVPage CONTRAST TYPE AND DOSE: contrast/concentration: Isovue 350.00 mg/ml; Total Contrast Delivered: 100.0 ml; Total Saline Delivered: 72.0 ml RENAL FUNCTION: None required. The patient is less than 50 years old. RADIATION DOSE: CT Rad equipment meets quality standard of care and radiation dose reduction techniq ues were employed. CTDIvol: 6.2 - 11.7 mGy. DLP: 1581 mGy-cm.. LIMITATIONS: None. FINDINGS: LOWER CHEST: No significant findings. No nodules or infiltrates. LIVER: Normal size. No masses. No dilated ducts. SPLEEN: Normal size. No focal lesions. PANCREAS: No masses. No significant calcifications. No adjacent inflammation or peripancreatic fluid collections. Pancreatic duct not dilated. GALLBLADDER: Surgically absent. ADRENAL GLANDS: No significant masses or asymmetry. RIGHT KIDNEY AND URETER: No solid masses. No significant calcifications. No hydronephrosis or hyd roureter. LEFT KIDNEY AND URETER: No solid masses. No significant calcifications. No hydronephrosis or hydr oureter. AORTA AND VESSELS: No aneurysm. No dissection. Renal arteries, SMA, celiac without stenosis. RETROPERITONEUM: No retroperitoneal adenopathy, hemorrhage or masses. BOWEL AND PERITONEAL CAVITY: Persistent area of bowel wall thickening involving the splenic flexure e xtending into the upper descending colon, present on the initial postcontrast images and on the delay ed images. Overall total length of involvement is approximately 12 cm. Previous resection involving the rectal region with anastomosis present. No free fluid or peritoneal masses. APPENDIX: Normal. PELVIS: No mass. No free fluid. Normal bladder. ABDOMINAL WALL: No masses. No hernias. BONES: No significant or acute findings. OTHER: No other significant finding. IMPRESSION: 1. PERSISTENT AREA OF BOWEL WALL THICKENING INVOLVING THE SPLENIC FLEXURE EXTENDING INTO THE UPPER DE SCENDING COLON. THIS COULD BE ARTIFACT DUE TO FOCAL AREA OF PERISTALSIS AND/OR INFLAMMATION ALTHOUGH MALIGNANT PROCESS NEEDS TO BE CONSIDERED. FOLLOW-UP WITH ENDOSCOPY SHOULD BE CONSIDERED IF ONE HAS NOT BEEN PERFORMED RECENTLY. 2. NO OTHER SIGNIFICANT OR ACUTE FINDING IN THE ABDOMEN OR PELVIS ON CT SCAN WITH IV CONTRAST. TECHNICAL DOCUMENTATION: JOB ID: [id number] Quality ID # 436: Final reports with documentation of one or more dose reduction techniques (e.g., Au tomated exposure control, adjustment of the mA and/or kV according to patient size, use of iterative reconstruction technique) 2010 [email or web address]- All Rights Reserved Reading location - IP/workstation name: [facility]
== END ==
LOC: RAD 08:24
PROVIDERS: ATTEND Internal Medicine Hematology & Oncology
DX: C20 Malignant neoplasm of rectum (principal)
CPT/HCPCS: 71260; 74177

== ENCOUNTER → 2018-03-05 | Outpatient (CLI) | payer OTHER ==
--- NOTE | 2018-03-05 15:08 | RADIOLOGY REPORT (SQ) ---
EXAM DESCRIPTION: NM WHOLE BODY BONE SCAN COMPLETED DATE/TIME: 03/05/2018 2:25 pm REASON FOR STUDY: COLON CA C18.9 MALIGNANT NEOPLASM OF COLON, UNSPECIFIED COMPARISON: CT chest. CT abdomen pelvis. RADIONUCLIDE AND DOSE: 20 millicuries Tc99m HDP. The route of agent administration: Intravenous. ADDITIONAL DRUGS AND DOSES: None. TECHNIQUE: Routine delayed images at 3 hours post radionuclide injection acquired of the bony skelet on including anterior and posterior whole-body projections and additional focused images as needed. LIMITATIONS: None. FINDINGS: BONES: Normal visualization without areas of photopenia or increased bony uptake of radiop harmaceutical. KIDNEYS: Symmetric excretion without obstruction. OTHER: No other significant finding. IMPRESSION: NORMAL BONE SCAN. COMMENT: Quality measure 147: Current bone scan is compared with any available plain radiographs, p rior bone scans, and CT/MRI. TECHNICAL DOCUMENTATION: JOB ID: [id number] [employer]- All Rights Reserved Reading location - IP/workstation name: [email or web address]
== END ==
LOC: RAD 10:40
PROVIDERS: ATTEND Internal Medicine Hematology & Oncology
DX: C18.9 Malignant neoplasm of colon, unspecified (principal)
CPT/HCPCS: 78306; A9561; Q9969

== ENCOUNTER → 2018-08-12 | Outpatient (CLI) | payer OTHER ==
--- NOTE | 2018-08-12 08:41 | WOMENS IMAGING REPORT ---
EXAM DESCRIPTION: BILAT SCREENING MAMMO W/CAD COMPLETED DATE/TIME: 08/12/2018 7:58 am REASON FOR STUDY: ROUTINE BILATERAL SCREENING;Z12.31 Z12.31 ENCNTR SCREEN MAMMOGRAM FOR MALIGNANT N EOPLASM OF GREGORY COMPARISON: [id number] EXAM PARAMETERS: Standard craniocaudal and mediolateral oblique views of each breast recorded using digital acquisition. Read with the assistance of CAD. .[facility] - [employer] Key Person Version 9.2 LIMITATIONS: None. FINDINGS: No suspicious masses, suspicious calcifications or architectural distortion. No areas of s uspicion. IMPRESSION: ASSESSMENT: Negative MAMMOGRAM. BIRADS 1 BREAST DENSITY: b. There are scattered areas of fibroglandular density. BIRAD: 1 NEGATIVE RECOMMENDATION: ROUTINE SCREENING COMMENT: The patient has been notified of the results by letter per SA requirements. Additional no tification policies are in place for contacting patient with suspicious or incomplete findings. Quality ID #225: The [employer] [employer] recommends an annual screening mammogram for women aged 40 years or over. This facility utilizes a reminder system to ensure that all patients receive reminder letters, and/or direct phone calls for appointments. This includes reminders for routine scr eening mammograms, diagnostic mammograms, or other Breast Imaging Interventions when appropriate. Th is patient will be placed in the appropriate reminder system. TECHNICAL DOCUMENTATION: FINDING NUMBER: (1) ASSESSMENT: (1) JOB ID: [id number] [employer]- All Rights Reserved Reading location - IP/workstation name: [email or web address]
== END ==
LOC: WI 07:33
PROVIDERS: ATTEND Internal Medicine Hematology & Oncology
DX: Z12.31 Encounter for screening mammogram for malignant neoplasm of breast (principal)
CPT/HCPCS: 77067

== ENCOUNTER 2019-07-22 05:20 | Day surgery (SDC) | payer OTHER ==
[2019-07-15 10:44] LABS: HEMOGLOBIN 14.9 g/dL (12.0-15.5); MEAN CORPUSCULAR HEMOGLOBIN 30.9 pg (27.0-33.4); MEAN CORPUSCULAR HGB CONC 35.4 g/dL (32.0-36.0); MEAN CORPUSCULAR VOLUME 88 fl (80-97); PLATELET COUNT 238 10^3/uL (150-450); WHITE BLOOD COUNT 7.7 10^3/uL (4.0-10.5)
[~2019-07-22 05:20] MED LIST changes: -CEFAZOLIN 1 GM/D5W RTU 1 GM/50 ML RTUPB IV PRN; -DEXTROSE 5%-LACTATED RINGERS 1,000 ML IV PRN; +LACTATED RINGERS 1000 ML IV PRN; +LIDOCAINE 0.5% INJ-PF (5 MG/ML) 50 ML SDV SUBCUT PRN
[2019-07-22] MEDS ORDERED: PROPOFOL INJ 200 MG/20 ML VIAL IV ONE (07:13)
--- NOTE | 2019-07-22 07:56 | Discharge Summary ---
Discharge Summary (SDC) - Discharge Final Diagnosis: 1. Personal history of stage III colon cancer status post sigmoid colectomy 2. Interval left colon polyp Date of Surgery: 07/22/19 Discharge Date: 07/22/19 Condition: Good Treatment or Instructions: [address] [address] POST ENDOSCOPY DISCHARGE INSTRUCTIONS 1. Diet: Start clear liquids that a regular diet as tolerated. 2. Resume all preoperative medications. All oral anticoagulants and aspirins can be resumed 24 hours after procedure. 3. If a polypectomy was performed some bleeding per rectum may occur. This should stop within 3 days. If not, please contact the office. 4. If you had a colonoscopy you may experience some bloating and delayed return of normal bowel function for several days, your regular bowel movement pattern should resume within a week. 5. Please contact [facility] at to make an appointment with Dr. Flynn for 1 to 3 weeks following procedure. 6. If you have any questions or concerns regarding your care,treatment plan or follow up, please contact our office. 7. Per clinical guidelines we recommend you undergo a repeat colonoscopy in 1 to 2 years pending pathology report. Referrals: MORRIS BOYD NP [Primary Care Provider] - Discharge Diet: As Tolerated Discharge Activity: Activity As Tolerated Home Care Assistance: None Needed Report the Following to Your Physician Immediately: Shortness of Breath, Increase in Pain, Fever over 101 Degrees
--- NOTE | 2019-07-22 08:00 | Operative Report ---
Operative Report DATE OF SURGERY: 07/22/19 PREOPERATIVE DIAGNOSIS: 1. Personal history of colon cancer status post sigmoid colectomy. 2. Need for surveillance colonoscopy POSTOPERATIVE DIAGNOSIS: Same with. 1. External hemorrhoids. 2. Left colon polyp. 3. Minimal erythema at colorectal anastomosis OPERATION: 1. Total colonoscopy to cecum. 2. Left colon polypectomy. 3. Cold forceps biopsy of mucosa at colorectal anastomosis SURGEON: FAY BAUTISTA ANESTHESIA: LMAC TISSUE REMOVED OR ALTERED: Left colon polyp; mucosal biopsy of colorectal anastomosis COMPLICATIONS: None ESTIMATED BLOOD LOSS: Scant INTRAOPERATIVE FINDINGS: See below PROCEDURE: Obtaining informed consent the patient was taken from the preoperative holding area to the main endoscopy suite where monitoring devices were attached to the patient. Plan and surgical timeout were conducted The patient was placed in the left lateral decubitus position with knees to chest. A perianal examination was performed. There was no visible or palpable anorectal pathology. Sphincter tone was felt to be normal. Of note there were external hemorrhoids, one mildly excoriated. The flexible adult colonoscope was advanced through the anal rectal canal, all the way to the cecum. Visualization of the cecum was achieved by demonstration of the ileocecal valve, the appendiceal orifice and transillumination of the anterior abdominal wall. Photos were taken. This was an excellent study on the well-prepped bowel. The colonoscope was withdrawn slowly and methodically checked and the mucosa carefully. There was no evidence of tumor, stricture, bleeding. In the left colon approximately 40 cm from the anal verge was a small 2 to 3 mm polyp, photographed, removed with the cold forceps biopsy device. Bleeding was minimal. Specimen was sent as left colon polyp. Polypectomy site reexamined and felt to be stable. There was no evidence of diverticuloses. The scope was slowly withdrawn through the remainder the left colon. Approximately 14 cm in the anal verge was the scar consistent with the stapled colorectal anastomosis. Photos were taken. Just distal to the scar in 1 area was a slightly erythematous spot of mucosa which was photographed, and biopsied with a cold forceps biopsy device. This was felt not to be of pathologic significance. Bleeding was minimal. Specimen was sent as mucosa from colorectal anastomosis. The scope was brought through the anal rectal canal fully. Complete visualization of the rectum was achieved with photodocumentation. No further pathology identified. The scope was withdrawn to the patient's anus. The patient tolerated the procedure well and was taken to the recovery area in stable condition. Per surveillance guidelines, patient will be an appropriate candidate for follow-up colonoscopy in 1 to 3 years pending path report.
[2019-07-22 08:42] VITALS: BP 119/86
== END 2019-07-22 08:40 | disposition home or self-care (01) ==
LOC: OROUT 05:20
PROVIDERS: ATTEND Surgery
DX: Z12.11 Encounter for screening for malignant neoplasm of colon (principal); K64.4 Residual hemorrhoidal skin tags; D12.6 Benign neoplasm of colon, unspecified; Z86.010 Personal history of colon polyps; Z85.038 Personal history of other malignant neoplasm of large intestine
CPT/HCPCS: 45380; 36415; 85027; 81025; 88305 ×2; 00811; J2704; 811